=== PATIENT | male | born 1995 | race Caucasian/White ===

== ENCOUNTER 2019-07-17 08:10 | Emergency (ER) | payer OTHER ==
[~2019-07-17] VITALS: Ht 185.4 cm; Wt 73.5 kg
[2019-07-17 09:05] LABS: INFLUENZA A ANTIGEN Negative (Negative); INFLUENZA B ANTIGEN Negative (Negative)
[2019-07-17] MEDS ORDERED: AMOXICILLIN 50500 MG PO (09:11)
[2019-07-17 09:19] VITALS: BP 120/82
== END 2019-07-17 09:19 | disposition home or self-care (01) ==
LOC: M.ERS 08:10
PROVIDERS: Family Medicine
DX: J02.9 Acute pharyngitis, unspecified (principal); F17.200 Nicotine dependence, unspecified, uncomplicated